=== PATIENT | female | born 1980 | race Caucasian/White ===

== ENCOUNTER 2019-02-12 00:38 | Inpatient (IN) ==
[2019-02-12] MEDS ORDERED: CLINDAMYCIN INJ 600 MG in PREMIX 1 EACH IV STA (01:16)
[2019-02-12 01:41] LABS: Basophils % 0.2 % (0.0-0.8); Eosinophils # 0.2 10*3/uL (0.0-0.87); Eosinophils % 1.2 % (0.00-10.9); Hematocrit 42.1 VOL% (35.7-47.0); Hemoglobin 13.6 GM/DL (12.0-16.0); Immature Granulocytes % 0.5 %; Immature Granulocytes Absolute 0.09 #; Lymphocytes # 1.6 10*3/uL (1.4-4.0); Lymphocytes % 9.3 % (21.3-54.2); Mean Corpuscular HGB Conc 32.3 GM/DL (32-36); Mean Corpuscular Volume 91.7 FL (87-102); Mean Platelet Volume 10.4 FL (9.6-12.0); Monocytes % 5.7 % (1.7-12.7); Neutrophils % 83.1 % (38.7-73.9); Platelet Count 207 T/CUMM (130-400); Red Blood Count 4.59 MC/CUMM (3.8-5.5); Red Cell Distribution Width 12.8 % (9.3-17.3); White Blood Count 17.3 T/CUMM (4-12)
[2019-02-12 01:56] LABS: Calcium 9.1 MG/DL (8.5-10.1); Osmolality,Calculated 271.8 MOS/KG (273-304)
[2019-02-12] MEDS ORDERED: ONDANSETRON 4 MG/2 ML VIAL IV PRN (02:01)
[2019-02-12] MEDS: LACTATED RINGERS 1,000 ML IV SCH ×2 (04:23→13:46)
[2019-02-12 06:08] LABS: Basophils % 0.2 % (0.0-0.8); Eosinophils # 0.2 10*3/uL (0.0-0.87); Eosinophils % 1.8 % (0.00-10.9); Hematocrit 41.8 VOL% (35.7-47.0); Hemoglobin 13.6 GM/DL (12.0-16.0); Immature Granulocytes % 0.5 %; Immature Granulocytes Absolute 0.06 #; Lymphocytes # 1.9 10*3/uL (1.4-4.0); Lymphocytes % 14.4 % (21.3-54.2); Mean Corpuscular HGB Conc 32.5 GM/DL (32-36); Mean Corpuscular Volume 90.7 FL (87-102); Mean Platelet Volume 11.2 FL (9.6-12.0); Monocytes % 6.6 % (1.7-12.7); Neutrophils % 76.5 % (38.7-73.9); Platelet Count 170 T/CUMM (130-400); Red Blood Count 4.61 MC/CUMM (3.8-5.5); Red Cell Distribution Width 12.9 % (9.3-17.3); White Blood Count 13.1 T/CUMM (4-12)
[2019-02-12] MEDS ORDERED: CLINDAMYCIN INJ 300 MG in SODIUM CHLORIDE 0.9% 100 ML IV SCH (08:00)
[2019-02-12] MEDS: PANTOPRAZOLE 40 MG TABLET PO SCH (08:45)
[2019-02-12] MEDS: ACETAMINOPHEN 325 MG TABLET PO PRN ×2 (12:54→19:36)
[2019-02-12] MEDS: CLINDAMYCIN INJ 300 MG in PREMIX 1 EACH IV SCH ×2 (13:01→19:26)
[2019-02-13] MEDS: CLINDAMYCIN INJ 300 MG in PREMIX 1 EACH IV SCH ×3 (02:42→20:00)
[2019-02-13] MEDS: LACTATED RINGERS 1,000 ML IV SCH ×4 (04:43→20:02)
[2019-02-13] MEDS: PANTOPRAZOLE 40 MG TABLET PO SCH (10:37)
[2019-02-13] MEDS ORDERED: LIDOCAINE 1%/EPI INJ 20 ML VIAL ONE (10:55)
[2019-02-13] MEDS ORDERED: ONDANSETRON 4 MG/2 ML VIAL IV PRN (11:45)
[2019-02-13] MEDS ORDERED: HYDROmorphone 2 MG/1 ML VIAL IV PRN ×3 (11:45→13:45)
[2019-02-13] MEDS ORDERED: MEPERIDINE 25 MG/1 ML VIAL IV PRN (11:45)
[2019-02-13] MEDS ORDERED: PROMETHAZINE INJ 25 MG in SODIUM CHLORIDE 0.9% 50 ML IV PRN (11:45)
[2019-02-13] MEDS ORDERED: MEPERIDINE 25 MG/1 ML VIAL ONE (11:48)
[2019-02-13] MEDS ORDERED: PROPOFOL 200 MG/20 ML VIAL IV ONE (11:49)
[2019-02-13] MEDS ORDERED: MIDAZOLAM 2 MG/2 ML VIAL ONE (11:49)
[2019-02-13] MEDS ORDERED: ONDANSETRON 4 MG/2 ML VIAL ONE ×2 (11:49→11:50)
[2019-02-13] MEDS ORDERED: LIDOCAINE 2% 5 ML VIAL ONE (11:49)
[2019-02-13] MEDS ORDERED: fentaNYL 100 MCG/2 ML VIAL ONE (11:49)
[2019-02-13] MEDS ORDERED: SODIUM CHLORIDE 0.9% 100 ML IV ONE (11:50)
[2019-02-13] MEDS ORDERED: diphenhydrAMINE 50 MG/1 ML VIAL ONE (11:53)
[2019-02-13] MEDS ORDERED: diphenhydrAMINE 50 MG/1 ML VIAL IV ONE (12:02)
[2019-02-13] MEDS: METOPROLOL TARTRATE 25 MG TABLET PO SCH (21:00)
[2019-02-14] MEDS: CLINDAMYCIN INJ 300 MG in PREMIX 1 EACH IV SCH ×4 (03:10→21:06)
[2019-02-14] MEDS: PANTOPRAZOLE 40 MG TABLET PO SCH (09:00)
[2019-02-14] MEDS: CITALOPRAM 20 MG TABLET PO SCH (09:01)
[2019-02-14] MEDS: LACTATED RINGERS 1,000 ML IV SCH ×4 (10:08→18:31)
[2019-02-14] MEDS: METOPROLOL TARTRATE 25 MG TABLET PO SCH ×2 (10:08→21:06)
[2019-02-14] MEDS: LISINOPRIL 20 MG TABLET PO SCH (10:08)
[2019-02-14] MEDS: SODIUM HYPOCHLORITE 0.25% IRRIG 473 ML BOTTLE TOP SCH (11:58)
[2019-02-15] MEDS: CLINDAMYCIN INJ 300 MG in PREMIX 1 EACH IV SCH ×2 (03:36→09:30)
[2019-02-15] MEDS: LACTATED RINGERS 1,000 ML IV SCH (03:36)
[2019-02-15] MEDS: SODIUM HYPOCHLORITE 0.25% IRRIG 473 ML BOTTLE TOP SCH (08:46)
[2019-02-15] MEDS: LISINOPRIL 20 MG TABLET PO SCH (08:46)
[2019-02-15] MEDS: METOPROLOL TARTRATE 25 MG TABLET PO SCH (08:46)
[2019-02-15] MEDS: PANTOPRAZOLE 40 MG TABLET PO SCH (08:46)
[2019-02-15] MEDS: CITALOPRAM 20 MG TABLET PO SCH (08:46)
[2019-02-15 11:41] VITALS: BP 130/76
== END 2019-02-15 16:45 | disposition home or self-care (01) | DRG 364 ==
LOC: N.ED 00:38 → N.EDINP 02:01 → N.3E 02:52
PROVIDERS: ADMIT Surgery; ATTEND Surgery

== ENCOUNTER 2019-05-08 19:13 | Inpatient (IN) ==
[2019-05-08] MEDS ORDERED: SODIUM CHLORIDE 0.9% 1,000 ML IV STA (21:06)
[2019-05-08] MEDS ORDERED: cefTRIAXone 1,000 MG in SODIUM CHLORIDE 0.9% 100 ML IV STA (21:07)
[2019-05-08 21:33] LABS: Basophils % 0.2 % (0.0-0.8); Eosinophils # 0.2 10*3/uL (0.0-0.87); Eosinophils % 0.9 % (0.00-10.9); Hematocrit 42.1 VOL% (35.7-47.0); Hemoglobin 13.5 GM/DL (12.0-16.0); Immature Granulocytes % 0.9 %; Immature Granulocytes Absolute 0.17 #; Lymphocytes # 1.4 10*3/uL (1.4-4.0); Lymphocytes % 6.9 % (21.3-54.2); Mean Corpuscular HGB Conc 32.1 GM/DL (32-36); Mean Corpuscular Volume 90.3 FL (87-102); Mean Platelet Volume 10.6 FL (9.6-12.0); Monocytes % 5.5 % (1.7-12.7); Neutrophils % 85.6 % (38.7-73.9); Platelet Count 228 T/CUMM (130-400); Red Blood Count 4.66 MC/CUMM (3.8-5.5); Red Cell Distribution Width 13.2 % (9.3-17.3); White Blood Count 19.7 T/CUMM (4-12)
[2019-05-08 21:47] LABS: Calcium 8.5 MG/DL (8.5-10.1)
[2019-05-08 21:53] LABS: Apearance,Urine Slightly Hazy (Clear); Bacteria,Urine Many /HPF (Few); Bilirubin,Urine Negative (Negative); Blood, Urine Large mg/dL (Negative); Glucose,Urine (UA) Negative (Negative); Ketones,Urine Negative (Negative); Mucus,Urine Many /LPF (Occasional); Nitrite,Urine Positive (Negative); Protein,Urine 30 MG/DL; RBC,Urine 49 /HPF (0-4); Squamous Epithelial Cell,Urine Occasional /HPF (0-10); Urine Color Amber (Yellow); Urine Specific Gravity 1.018 (1.001-1.035); WBC,Urine 57 /HPF (0-6)
[2019-05-08] MEDS ORDERED: HYDROmorphone 2 MG/1 ML VIAL IV ONE (21:59)
[2019-05-08] MEDS ORDERED: MAGNESIUM HYDROXIDE SUSP 30 ML UDCUP PO PRN (21:59)
[2019-05-08] MEDS ORDERED: ONDANSETRON 4 MG/2 ML VIAL IV PRN (21:59)
[2019-05-08] MEDS ORDERED: ACETAMINOPHEN 325 MG TABLET PO PRN (21:59)
[2019-05-08] MEDS ORDERED: BISACODYL 10 MG SUPP RECTAL PRN (21:59)
[2019-05-09] MEDS: LACTATED RINGERS 1,000 ML IV SCH ×2 (02:55→05:51)
[2019-05-09] MEDS: PIPERACILLIN/TAZOBACTAM 3,375 MG in SODIUM CHLORIDE 0.9% 100 ML IV SCH ×3 (02:55→21:58)
[2019-05-09] MEDS: oxyCODONE/ACETAMINOPHEN 5-325 MG TABLET PO PRN ×2 (08:22→17:40)
[2019-05-09] MEDS: DOCUSATE SODIUM 100 MG CAPSULE PO SCH ×2 (08:22→21:43)
[2019-05-09 11:18] LABS: HIV Antigen/Antibody Result Nonreactive (Nonreactive)
[2019-05-09] MEDS: valACYclovir 500 MG TABLET PO SCH ×2 (12:03→21:42)
[2019-05-09] MEDS: MEPERIDINE 25 MG/1 ML VIAL IV PRN (14:07)
[2019-05-09] MEDS ORDERED: valACYclovir 500 MG TABLET PO SCH (21:00)
[2019-05-09] MEDS: CITALOPRAM 20 MG TABLET PO SCH (21:42)
[2019-05-09] MEDS: MONTELUKAST 10 MG TABLET PO SCH (21:42)
[2019-05-09] MEDS: CETIRIZINE 10 MG TABLET PO SCH (21:42)
[2019-05-09] MEDS: METOPROLOL TARTRATE 25 MG TABLET PO SCH (21:43)
[2019-05-10] MEDS: LACTATED RINGERS 1,000 ML IV SCH ×3 (01:23→14:20)
[2019-05-10] MEDS: MEPERIDINE 25 MG/1 ML VIAL IV PRN (02:48)
[2019-05-10] MEDS: PIPERACILLIN/TAZOBACTAM 3,375 MG in SODIUM CHLORIDE 0.9% 100 ML IV SCH ×3 (04:56→20:47)
[2019-05-10] MEDS ORDERED: GLUCAGON 1 MG VIAL ONE (08:18)
[2019-05-10] MEDS ORDERED: LIDOCAINE 2% 5 ML VIAL ONE (08:29)
[2019-05-10] MEDS ORDERED: SEVOFLURANE 1 UNIT/15 MINUTE INH ONE (08:29)
[2019-05-10] MEDS ORDERED: MIDAZOLAM 2 MG/2 ML VIAL ONE (08:29)
[2019-05-10] MEDS ORDERED: fentaNYL 100 MCG/2 ML VIAL ONE (08:30)
[2019-05-10] MEDS ORDERED: propofoL 200 MG/20 ML VIAL IV ONE (08:30)
[2019-05-10] MEDS ORDERED: ONDANSETRON 4 MG/2 ML VIAL ONE ×2 (08:30→08:31)
[2019-05-10] MEDS ORDERED: HYDROmorphone 2 MG/1 ML VIAL ONE (08:31)
[2019-05-10] MEDS: HYDROmorphone 2 MG/1 ML VIAL IV PRN ×6 (08:35→22:08)
[2019-05-10] MEDS ORDERED: ONDANSETRON 4 MG/2 ML VIAL IV PRN (08:35)
[2019-05-10] MEDS: oxyCODONE/ACETAMINOPHEN 5-325 MG TABLET PO PRN ×2 (09:36→19:52)
[2019-05-10] MEDS: valACYclovir 500 MG TABLET PO SCH ×2 (09:37→20:46)
[2019-05-10] MEDS ORDERED: HYDROmorphone 2 MG/1 ML VIAL IV PRN (10:11)
[2019-05-10] MEDS: DOCUSATE SODIUM 100 MG CAPSULE PO SCH ×2 (10:16→20:46)
[2019-05-10] MEDS: lisinopriL 20 MG TABLET PO SCH (10:17)
[2019-05-10] MEDS: METOPROLOL TARTRATE 25 MG TABLET PO SCH ×2 (10:17→20:47)
[2019-05-10] MEDS ORDERED: HYDROmorphone 2 MG/1 ML VIAL IV ONE (10:30)
[2019-05-10] MEDS: CITALOPRAM 20 MG TABLET PO SCH (20:46)
[2019-05-10] MEDS: CETIRIZINE 10 MG TABLET PO SCH (20:47)
[2019-05-10] MEDS: MONTELUKAST 10 MG TABLET PO SCH (20:47)
[2019-05-11] MEDS: HYDROmorphone 2 MG/1 ML VIAL IV PRN ×4 (04:46→16:23)
[2019-05-11] MEDS: PIPERACILLIN/TAZOBACTAM 3,375 MG in SODIUM CHLORIDE 0.9% 100 ML IV SCH (04:47)
[2019-05-11 05:45] LABS: Basophils % 0.3 % (0.0-0.8); Eosinophils # 0.4 10*3/uL (0.0-0.87); Eosinophils % 4.4 % (0.00-10.9); Hematocrit 31.2 VOL% (35.7-47.0); Hemoglobin 9.9 GM/DL (12.0-16.0); Immature Granulocytes % 0.7 %; Immature Granulocytes Absolute 0.07 #; Lymphocytes # 1.3 10*3/uL (1.4-4.0); Lymphocytes % 13.1 % (21.3-54.2); Mean Corpuscular HGB Conc 31.7 GM/DL (32-36); Mean Corpuscular Volume 91.2 FL (87-102); Monocytes % 8.8 % (1.7-12.7); Neutrophils % 72.7 % (38.7-73.9); Platelet Count 256 T/CUMM (130-400); Red Blood Count 3.42 MC/CUMM (3.8-5.5); Red Cell Distribution Width 13.4 % (9.3-17.3)
[2019-05-11] MEDS: LACTATED RINGERS 1,000 ML IV SCH ×4 (05:47→21:24)
[2019-05-11] MEDS ORDERED: BUPIVACAINE MPF 0.25% 30 ML VIAL ONE (08:42)
[2019-05-11] MEDS: lisinopriL 20 MG TABLET PO SCH (08:44)
[2019-05-11] MEDS: METOPROLOL TARTRATE 25 MG TABLET PO SCH ×2 (08:44→21:25)
[2019-05-11] MEDS ORDERED: LIDOCAINE 2% 5 ML VIAL ONE (09:52)
[2019-05-11] MEDS ORDERED: propofoL 200 MG/20 ML VIAL IV ONE (09:52)
[2019-05-11] MEDS ORDERED: SEVOFLURANE 1 UNIT/15 MINUTE INH ONE (09:53)
[2019-05-11] MEDS ORDERED: fentaNYL 100 MCG/2 ML VIAL ONE (09:53)
[2019-05-11] MEDS ORDERED: MIDAZOLAM 2 MG/2 ML VIAL ONE (09:53)
[2019-05-11] MEDS: valACYclovir 500 MG TABLET PO SCH (10:27)
[2019-05-11] MEDS: NAFCILLIN 1,000 MG in SODIUM CHLORIDE 0.9% 100 ML IV SCH ×3 (12:14→21:24)
[2019-05-11] MEDS: DOCUSATE SODIUM 100 MG CAPSULE PO SCH ×2 (12:14→21:25)
[2019-05-11] MEDS: oxyCODONE/ACETAMINOPHEN 5-325 MG TABLET PO PRN ×3 (13:57→21:23)
[2019-05-11] MEDS: MONTELUKAST 10 MG TABLET PO SCH (21:24)
[2019-05-11] MEDS: CITALOPRAM 20 MG TABLET PO SCH (21:24)
[2019-05-11] MEDS: CETIRIZINE 10 MG TABLET PO SCH (21:24)
[2019-05-11 23:21] LABS: Herpes Source VAGINAL
[2019-05-12] MEDS: NAFCILLIN 1,000 MG in SODIUM CHLORIDE 0.9% 100 ML IV SCH ×6 (01:13→22:04)
[2019-05-12 05:39] LABS: Basophils % 0.4 % (0.0-0.8); Eosinophils # 0.5 10*3/uL (0.0-0.87); Hematocrit 31.7 VOL% (35.7-47.0); Hemoglobin 9.7 GM/DL (12.0-16.0); Immature Granulocytes Absolute 0.08 #; Lymphocytes # 1.7 10*3/uL (1.4-4.0); Lymphocytes % 22.1 % (21.3-54.2); Mean Corpuscular HGB Conc 30.6 GM/DL (32-36); Mean Platelet Volume 9.7 FL (9.6-12.0); Monocytes % 9.4 % (1.7-12.7); Neutrophils % 61.1 % (38.7-73.9); Platelet Count 259 T/CUMM (130-400); Red Blood Count 3.41 MC/CUMM (3.8-5.5); Red Cell Distribution Width 13.3 % (9.3-17.3); White Blood Count 7.7 T/CUMM (4-12)
[2019-05-12] MEDS: HYDROmorphone 2 MG/1 ML VIAL IV PRN ×2 (06:02→09:56)
[2019-05-12] MEDS: METOPROLOL TARTRATE 25 MG TABLET PO SCH ×2 (08:33→20:51)
[2019-05-12] MEDS: DOCUSATE SODIUM 100 MG CAPSULE PO SCH ×2 (08:33→20:47)
[2019-05-12] MEDS: lisinopriL 20 MG TABLET PO SCH (08:34)
[2019-05-12] MEDS ORDERED: SODIUM HYPOCHLORITE 0.25% IRRIG 473 ML BOTTLE TOP STA (10:30)
[2019-05-12] MEDS ORDERED: VANCOMYCIN INJ 1,500 MG in SODIUM CHLORIDE 0.9% 500 ML IV ONE (11:00)
[2019-05-12] MEDS: oxyCODONE/ACETAMINOPHEN 5-325 MG TABLET PO PRN ×3 (11:16→20:47)
[2019-05-12] MEDS: SODIUM HYPOCHLORITE 0.25% IRRIG 473 ML BOTTLE TOP SCH (11:17)
[2019-05-12] MEDS ORDERED: LIDOCAINE 2% 5 ML VIAL ONE (14:12)
[2019-05-12] MEDS ORDERED: propofoL 200 MG/20 ML VIAL IV ONE (14:12)
[2019-05-12] MEDS ORDERED: SEVOFLURANE 1 UNIT/15 MINUTE INH ONE (14:12)
[2019-05-12] MEDS ORDERED: MIDAZOLAM 2 MG/2 ML VIAL ONE (14:13)
[2019-05-12] MEDS ORDERED: ONDANSETRON 4 MG/2 ML VIAL ONE ×2 (14:13→14:26)
[2019-05-12] MEDS ORDERED: fentaNYL 100 MCG/2 ML VIAL ONE (14:13)
[2019-05-12] MEDS ORDERED: HYDROmorphone 2 MG/1 ML VIAL ONE (14:26)
[2019-05-12] MEDS ORDERED: HYDROmorphone 2 MG/1 ML VIAL IV PRN (14:27)
[2019-05-12] MEDS ORDERED: ONDANSETRON 4 MG/2 ML VIAL IV PRN (14:27)
[2019-05-12] MEDS: VANCOMYCIN INJ 1,500 MG in SODIUM CHLORIDE 0.9% 500 ML IV SCH (15:19)
[2019-05-12] MEDS: LACTATED RINGERS 1,000 ML IV SCH (15:20)
[2019-05-12] MEDS: CETIRIZINE 10 MG TABLET PO SCH (20:47)
[2019-05-12] MEDS: CITALOPRAM 20 MG TABLET PO SCH (20:47)
[2019-05-12] MEDS: MONTELUKAST 10 MG TABLET PO SCH (20:47)
[2019-05-13] MEDS: HYDROmorphone 2 MG/1 ML VIAL IV PRN ×6 (00:14→20:52)
[2019-05-13] MEDS: NAFCILLIN 1,000 MG in SODIUM CHLORIDE 0.9% 100 ML IV SCH ×6 (02:04→23:56)
[2019-05-13] MEDS: VANCOMYCIN INJ 1,500 MG in SODIUM CHLORIDE 0.9% 500 ML IV SCH ×2 (03:14→15:53)
[2019-05-13] MEDS: DOCUSATE SODIUM 100 MG CAPSULE PO SCH ×2 (08:08→20:48)
[2019-05-13] MEDS: METOPROLOL TARTRATE 25 MG TABLET PO SCH ×2 (10:50→20:52)
[2019-05-13] MEDS: lisinopriL 20 MG TABLET PO SCH (10:50)
[2019-05-13] MEDS: SODIUM HYPOCHLORITE 0.25% IRRIG 473 ML BOTTLE TOP SCH (11:00)
[2019-05-13] MEDS: LACTATED RINGERS 1,000 ML IV SCH (15:46)
[2019-05-13] MEDS: MONTELUKAST 10 MG TABLET PO SCH (20:48)
[2019-05-13] MEDS: CETIRIZINE 10 MG TABLET PO SCH (20:48)
[2019-05-13] MEDS: CITALOPRAM 20 MG TABLET PO SCH (20:49)
[2019-05-14] MEDS: LACTATED RINGERS 1,000 ML IV SCH ×2 (01:45→08:33)
[2019-05-14] MEDS: NAFCILLIN 1,000 MG in SODIUM CHLORIDE 0.9% 100 ML IV SCH ×4 (02:31→19:34)
[2019-05-14] MEDS: VANCOMYCIN INJ 1,500 MG in SODIUM CHLORIDE 0.9% 500 ML IV SCH ×3 (05:12→23:49)
[2019-05-14] MEDS: HYDROmorphone 2 MG/1 ML VIAL IV PRN ×5 (07:16→23:48)
[2019-05-14] MEDS: DOCUSATE SODIUM 100 MG CAPSULE PO SCH ×2 (08:32→20:49)
[2019-05-14] MEDS: lisinopriL 20 MG TABLET PO SCH (09:13)
[2019-05-14] MEDS: METOPROLOL TARTRATE 25 MG TABLET PO SCH ×2 (09:13→23:38)
[2019-05-14] MEDS: SODIUM HYPOCHLORITE 0.25% IRRIG 473 ML BOTTLE TOP SCH (10:00)
[2019-05-14] MEDS: FLUCONAZOLE 100 MG TABLET PO SCH (10:58)
[2019-05-14] MEDS: oxyCODONE/ACETAMINOPHEN 5-325 MG TABLET PO PRN (10:58)
[2019-05-14] MEDS: CETIRIZINE 10 MG TABLET PO SCH (20:49)
[2019-05-14] MEDS: CITALOPRAM 20 MG TABLET PO SCH (20:49)
[2019-05-14] MEDS: MONTELUKAST 10 MG TABLET PO SCH (20:49)
[2019-05-15] MEDS: NAFCILLIN 1,000 MG in SODIUM CHLORIDE 0.9% 100 ML IV SCH ×4 (02:59→19:54)
[2019-05-15] MEDS: VANCOMYCIN INJ 1,500 MG in SODIUM CHLORIDE 0.9% 500 ML IV SCH ×4 (06:05→22:35)
[2019-05-15] MEDS: FLUCONAZOLE 100 MG TABLET PO SCH (08:33)
[2019-05-15] MEDS: DOCUSATE SODIUM 100 MG CAPSULE PO SCH ×2 (08:33→21:15)
[2019-05-15] MEDS: lisinopriL 20 MG TABLET PO SCH (08:34)
[2019-05-15] MEDS: METOPROLOL TARTRATE 25 MG TABLET PO SCH ×2 (08:34→21:15)
[2019-05-15] MEDS: HYDROmorphone 2 MG/1 ML VIAL IV PRN ×2 (09:44→19:53)
[2019-05-15] MEDS: SODIUM HYPOCHLORITE 0.25% IRRIG 473 ML BOTTLE TOP SCH (10:52)
[2019-05-15] MEDS: LACTATED RINGERS 1,000 ML IV SCH (19:59)
[2019-05-15] MEDS: CETIRIZINE 10 MG TABLET PO SCH (21:15)
[2019-05-15] MEDS: CITALOPRAM 20 MG TABLET PO SCH (21:15)
[2019-05-15] MEDS: MONTELUKAST 10 MG TABLET PO SCH (21:15)
[2019-05-16] MEDS: HYDROmorphone 2 MG/1 ML VIAL IV PRN (00:37)
[2019-05-16] MEDS: LACTATED RINGERS 1,000 ML IV SCH ×2 (00:48→03:21)
[2019-05-16] MEDS: NAFCILLIN 1,000 MG in SODIUM CHLORIDE 0.9% 100 ML IV SCH ×2 (02:51→03:21)
[2019-05-16] MEDS: VANCOMYCIN INJ 1,500 MG in SODIUM CHLORIDE 0.9% 500 ML IV SCH (05:02)
[2019-05-16 06:21] LABS: Albumin 2.5 G/DL (3.4-5.0); Calcium 8.7 MG/DL (8.5-10.1); Osmolality,Calculated 276.4 MOS/KG (273-304)
[2019-05-16 08:12] VITALS: BP 147/73
[2019-05-16] MEDS: FLUCONAZOLE 100 MG TABLET PO SCH (10:05)
[2019-05-16] MEDS: DOCUSATE SODIUM 100 MG CAPSULE PO SCH (10:05)
[2019-05-16] MEDS: METOPROLOL TARTRATE 25 MG TABLET PO SCH (10:06)
[2019-05-16] MEDS: SODIUM HYPOCHLORITE 0.25% IRRIG 473 ML BOTTLE TOP SCH (10:06)
[2019-05-16] MEDS: lisinopriL 20 MG TABLET PO SCH (10:06)
== END 2019-05-16 12:11 | disposition home or self-care (01) | DRG 518 ==
LOC: N.EDINP 19:13 → N.ED 19:13 → N.EDINP 21:56 → N.2E 22:43
PROVIDERS: ADMIT Obstetrics & Gynecology; ATTEND Obstetrics & Gynecology